=== PATIENT | male | born 1935 | race Caucasian/White ===

== ENCOUNTER 2017-11-28 06:57 | Inpatient (IN) | payer OTHER ==
[~2017-11-28] VITALS: Ht 185.4 cm; Wt 84.0 kg
[~2017-11-28 06:57] MED LIST: ADVAIR HFA120 INHAL1 IH; ADVIL PM1 TABLET PO; ADVIL200 MG PO; ANTABUSE250 MG PO; ANTABUSE500 MG PO; ASPIR-LOW81 MG PO; ASPIRIN325 MG PO; ATORVASTATIN CA40 MG PO; AUGMENTIN875 MG PO; Advair HFA 115/21 IH; CEFDINIR300 MG PO; CITALOPRAM HBR40 M1 PO; CITALOPRAM HBR40 MG PO; COUMADIN,JANTO7.5 MG PO; COUMADIN,JANTOVE1 MG PO; COUMADIN2.5 MG PO; COUMADIN5 MG PO; CRESTOR40 MG PO; DITROPAN5 MG PO; DUONEB 2.5-0.5 M3 ML AEROSOL; Desyrel PO; FOLIC ACID1 MG PO; JANTOVEN5 MG PO; K-DUR20 MEQ PO; LIPITOR40 MG PO; LO-DOSE ASPIRIN81 M2 PO; METOPROLOL SUCC25 MG PO; METOPROLOL TART25 MG PO; NAPROSYN500 MG PO; OMEPRAZOLE20 M2 PO; PREDNISONE10 M1 PO; PROTONIX40 MG PO; SIMVASTATIN80 MG PO; SPIRIVA1 INHALATI IH; THIAMINE HCL100 MG PO; TRAZODONE HCL50 MG PO; TYLENOL REGULA325 MG PO; TYLENOL WITH C1 EACH PO; WARFARIN SODIUM5 MG PO
[2017-11-28 07:34] LABS: HEMATOCRIT 44.8 % (38.0-50.0); HEMOGLOBIN 15.6 G/DL (12.5-16.6); MCH 35.1 PG (29.0-34.0); MCHC 34.8 G/DL (30.0-36.0); MCV 100.7 FL (86-99); RBC DIS.WIDTH-CV 14.6 % (11.8-14.6); RBC DIS.WIDTH-SD 54.4 % (39-53); RED BLOOD COUNT 4.45 M/uL (4.00-5.50); WHITE BLOOD COUNT 12.6 K/uL (4.1-10.2)
[2017-11-28 07:46] LABS: D-DIMER ELISA < 150.00 ng/mLDDU (<230); INTER. NORMALIZED RATIO 1.1
[2017-11-28 08:04] LABS: CHLORIDE 105 MEQ/L (99-109); CREATININE 0.8 MG/DL (0.6-1.3); GFR ESTIMATE (CALCULATED) > 59 mL/min/ (58.99-99999); GLUCOSE 118 mg/dL (70-99); POTASSIUM 4.1 MEQ/L (3.7-5.4); SODIUM 140 MEQ/L (136-147); UREA NITROGEN (BUN) 16 mg/dL (9-23)
[2017-11-28 08:18] LABS: PLATELET CLUMPS PRESENT - PLATELET COUNT APPEARS ADQ.; PLATELET COUNT UNABLE TO REPORT K/uL (156-360)
[2017-11-28 12:54] VITALS: BP 109/63
[2017-11-28 15:40] VITALS: BP 113/68
[2017-11-28 20:31] VITALS: BP 127/58
[2017-11-29 00:51] VITALS: BP 101/64
[2017-11-29 04:00] VITALS: BP 98/65
[2017-11-29 06:52] LABS: HEMATOCRIT 41.7 % (38.0-50.0); MCH 34.1 PG (29.0-34.0); MCHC 33.6 G/DL (30.0-36.0); MCV 101.7 FL (86-99); PLATELET COUNT 284 K/uL (156-360); RBC DIS.WIDTH-CV 14.7 % (11.8-14.6); RBC DIS.WIDTH-SD 55.8 % (39-53)
[2017-11-29 06:58] LABS: INTER. NORMALIZED RATIO 1.1
[2017-11-29 07:11] LABS: ALBUMIN 3.9 G/DL (3.2-4.8); ALKALINE PHOSPHATASE 34 IU/L (3-129); ALT (GPT) 11 IU/L (3-49); AST (GOT) 14 IU/L (2-34); CHLORIDE 102 MEQ/L (99-109); CREATININE 0.9 MG/DL (0.6-1.3); GFR ESTIMATE (CALCULATED) > 59 mL/min/ (58.99-99999); GLUCOSE 144 mg/dL (70-99); POTASSIUM 4.1 MEQ/L (3.7-5.4); SODIUM 140 MEQ/L (136-147); TOTAL BILIRUBIN 1.1 MG/DL (0.0-1.0); TOTAL PROTEIN 5.4 G/DL (6.4-8.3); UREA NITROGEN (BUN) 18 mg/dL (9-23)
[2017-11-29 09:02] VITALS: BP 103/61
[2017-11-29 12:07] VITALS: BP 99/59
[2017-11-29] MEDS ORDERED: ASPIR-LOW81 MG PO (15:35)
[2017-11-29] MEDS ORDERED: ATORVASTATIN CA40 MG PO (15:35)
[2017-11-29] MEDS ORDERED: VITAMIN D31000 UNI2 PO (15:38)
[2017-11-29] MEDS ORDERED: PROAIR HFA8.5 GM IH (15:39)
[2017-11-29] MEDS ORDERED: METOPROLOL TART25 MG PO (15:39)
[2017-11-29] MEDS ORDERED: WARFARIN SODIUM1 MG PO (15:40)
[2017-11-29 16:02] VITALS: BP 96/58
[2017-11-29 19:42] VITALS: BP 99/69
[2017-11-30 00:48] VITALS: BP 98/58
[2017-11-30 04:22] VITALS: BP 102/64
[2017-11-30 08:05] VITALS: BP 100/63
[2017-11-30 12:03] VITALS: BP 98/66
[2017-11-30 15:38] VITALS: BP 104/56
[2017-11-30 23:27] VITALS: BP 98/60
[2017-12-01 06:44] LABS: INTER. NORMALIZED RATIO 1.2
[2017-12-01 08:14] VITALS: BP 102/64
[2017-12-01 16:49] VITALS: BP 105/71
[2017-12-01 21:07] VITALS: BP 103/68
[2017-12-02 00:01] VITALS: BP 101/62
[2017-12-02 07:26] LABS: INTER. NORMALIZED RATIO 1.4
[2017-12-02 08:00] VITALS: BP 95/67
[2017-12-02 15:42] VITALS: BP 97/56
[2017-12-03 00:23] VITALS: BP 111/53
[2017-12-03 06:48] LABS: INTER. NORMALIZED RATIO 1.6
[2017-12-03] MEDS ORDERED: AMOX TR-K CLV1 EAC4 PO (07:00)
[2017-12-03] MEDS ORDERED: PREDNISONE20 MG PO (07:01)
[2017-12-03 07:20] VITALS: BP 102/63
== END 2017-12-03 11:12 | disposition home or self-care (01) | DRG 194 ==
LOC: EME 06:57 → EDOF 10:29 → 2EASTP 10:29 → ENRESERV 10:30 → 2EASTP 12:25 → ENPENDDIS 12-03 10:33 → 2EASTP 12-03 11:12
PROVIDERS: Emergency Medicine; Internal Medicine
DX: J18.9 Pneumonia, unspecified organism (principal); J98.11 Atelectasis; F33.9 Major depressive disorder, recurrent, unspecified; D68.59 Other primary thrombophilia; R09.02 Hypoxemia; Z66 Do not resuscitate; E78.5 Hyperlipidemia, unspecified; I10 Essential (primary) hypertension; I25.10 Atherosclerotic heart disease of native coronary artery without angina pectoris; F10.10 Alcohol abuse, uncomplicated; N40.0 Benign prostatic hyperplasia without lower urinary tract symptoms; Y90.9 Presence of alcohol in blood, level not specified; Z87.442 Personal history of urinary calculi; Z86.711 Personal history of pulmonary embolism; Z95.5 Presence of coronary angioplasty implant and graft; Z79.01 Long term (current) use of anticoagulants; Z91.14 Patient's other noncompliance with medication regimen
CPT/HCPCS: 71045; 71046; 71275; 80048; 80053; 83605; 83880; 84145 90; 85027; 85379; 85610; 87040; 93005; 94640; 94669; 94760; 94799; 99281; 99285; J0456; J0696; J1650; J1940; J7512